=== PATIENT | male | born 1995 | race Caucasian/White ===

== ENCOUNTER 2019-02-14 16:18 | Emergency (ER) | payer SELFPAY ==
[~2019-02-14] VITALS: Ht 180.3 cm; Wt 90.9 kg
[~2019-02-14 16:18] MED LIST: BACTROBAN2 % EX; CEPHALEXIN500 MG OR; NORCO1 TA1 PO
[2019-02-14 17:30] VITALS: BP 126/77
== END 2019-02-14 17:30 | disposition home or self-care (01) | DRG 605 ==
LOC: ED 16:18
DX: S80.01XA Contusion of right knee, initial encounter (principal); W01.198A Fall on same level from slipping, tripping and stumbling with subsequent striking against other object, initial encounter; Y93.H3 Activity, building and construction; Y92.89 Other specified places as the place of occurrence of the external cause; Y99.0 Civilian activity done for income or pay

== ENCOUNTER 2022-03-12 23:10 | Emergency (ER) | payer SELFPAY ==
[~2022-03-12] VITALS: Ht 180.3 cm; Wt 98.0 kg
[2022-03-12 23:42] VITALS: BP 148/101
[2022-03-12 23:47] LABS: HEMATOCRIT 45.9 % (39.0-50.0); HEMOGLOBIN 15.4 g/dl (14.0-18.0); IMMATURE GRANULOCYTES 0.3 % (0.0-5.0); MEAN CELL VOLUME 82.3 fL CALC (80.0-100.0); MEAN CORPUSCULAR HGB 27.6 pG CALC (26.0-32.0); MEAN CORPUSCULAR HGB CONC 33.6 g/dL CAL (32.0-36.0); NEUT# 4.74 thou/uL (1.82-7.42); RED BLOOD COUNT 5.58 mill/uL (4.70-6.10)
[2022-03-13 00:10] LABS: ALBUMIN 4.4 g/dL (3.2-5.0); ALKALINE PHOSPHATASE 77 u/l (38-126); ANION GAP 15 (6-22 (CALC)); BUN 13 mg/dL (9-20); BUN/CREATININE RATIO 14 (12-20 (CALC)); CARBON DIOXIDE 25 mmol/l (22-30); CHLORIDE 104 mmol/l (95-108); CREATININE 0.9 mg/dL (0.7-1.3); GFR FOR AFR.AMER. > 60 ML/MIN (>=60 (CALC)); GFR OTHER RACES > 60 ML/MIN (>=60 (CALC)); POTASSIUM 3.8 mmol/l (3.5-5.1); SGOT/AST 26 u/l (17-59); SODIUM 140 mmol/l (137-146); TOTAL PROTEIN 7.6 g/dL (6.3-8.2)
[2022-03-13 00:16] VITALS: BP 148/69
[2022-03-13 00:27] LABS: BILIRUBIN, TOTAL 0.7 mg/dL (0.0-1.4)
[2022-03-13 00:30] VITALS: BP 148/85
[2022-03-13 01:00] VITALS: BP 151/83
[2022-03-13 01:10] LABS: URINE BILIRUBIN - DIPSTICK NEGATIVE (NEGATIVE); URINE COLOR YELLOW; URINE GLUCOSE - DIPSTICK NEGATIVE (NEGATIVE); URINE KETONE NEGATIVE (NEGATIVE); URINE LEUK ESTERASE NEGATIVE (NEGATIVE); URINE PH 6.5 (4.5-8.0); URINE PROTEIN - DIPSTICK NEGATIVE (NEG-TRACE); URINE SPECIFIC GRAVITY 1.025; URINE UROBILINOGEN - DIPSTICK 0.2 E.U./dL (0.2)
[2022-03-13 01:16] LABS: URINE BLOOD DIPSTICK NEGATIVE (NEGATIVE); URINE NITRITE - DIPSTICK NEGATIVE (Negative)
[2022-03-13 01:29] VITALS: BP 125/85
[2022-03-13 01:35] VITALS: BP 125/85
== END 2022-03-13 01:35 | disposition home or self-care (01) | DRG 552 ==
LOC: ED 23:10
PROVIDERS: Family Medicine
DX: S16.1XXA Strain of muscle, fascia and tendon at neck level, initial encounter (principal); R51.9 Headache, unspecified; X50.0XXA Overexertion from strenuous movement or load, initial encounter; Y93.89 Activity, other specified; Z20.822 Contact with and (suspected) exposure to COVID-19

== ENCOUNTER 2024-10-25 17:53 | Emergency (ER) | payer SELFPAY ==
[~2024-10-25] VITALS: Ht 180.3 cm; Wt 104.0 kg
[2024-10-25] MEDS ORDERED: KETOROLAC TROMETHAMINE 30 MG/ML SDV IM ONE (18:05)
[2024-10-25] MEDS ORDERED: ACETAMINOPHEN 500 MG TAB PO ONE (18:05)
[2024-10-25] MEDS ORDERED: AMOX/K CLAV875 M1 PO (18:08)
[2024-10-25] MEDS ORDERED: EC-NAPROXEN500 MG PO (18:09)
[2024-10-25 18:10] VITALS: BP 174/97
== END 2024-10-25 18:26 | disposition home or self-care (01) | DRG 159 ==
LOC: ED 17:53
DX: K03.81 Cracked tooth (principal)